=== PATIENT | male | born 2005 | race Two or more races ===

== ENCOUNTER 2025-03-13 18:49 | Emergency (ER) | payer MEDICAID, SELFPAY ==
[2025-03-13 19:42] VITALS: BP 133/80; PULSE 73; RESP 18; TEMP 36.9; O2SAT 98
--- NOTE | 2025-03-13 20:47 | PD.EDADULT ---
ED General RME/HPI General Chief complaint: General Adult/Misc Complain Stated complaint: INHALED SOMETHING FROM A TREE IN THE [place] Time Seen by Provider: 03/13/25 19:53 Arrival date/time: 03/13/25 18:49 20-year-old male presents to the ED with complaint of left nasal foreign body. He states he was picking oranges and when he was looking up he felt a piece of the [place] fall onto his left nares and he accidentally sniffed it into his left nostril. He feels a foreign body sensation in between his nose and his throat. He has tried blowing his nose as well as snorting without any foreign body noted. Related Data Previous Rx's ?Medication ?Instructions ?Recorded acetaminophen 325 mg capsule 650 mg (2 x 325 mg) PO Q6H PRN 12/23/19 fever #30 caps benzonatate 150 mg capsule 150 mg PO BID PRN cough #14 caps 12/23/19 ibuprofen 600 mg tablet 600 mg PO Q6H #30 tabs 12/23/19 Allergies Allergy/AdvReac Type Severity Reaction Status Date / Time No Known Allergies Allergy Verified 03/13/25 18:53 Review of Systems Review of Systems Systems Reviewed: All systems reviewed, normal except as documented Past Medical History Past Medical History CARDIAC: Negative Congestive Heart Failure RESPIRATORY: Negative Chronic Obstructive Pulmonary Disease (COPD) GENITOURINARY: Negative Renal Disease ENDOCRINE: Negative Diabetes Mellitus Type 1 or Diabetes Mellitus Type 2 Social History SMOKING STATUS: Never smoker SUBSTANCE USE: does not use ED Exam Narrative Physical exam: Alert and oriented 20-year-old male, no acute distress. Nares are pale and boggy without foreign body noted, pharynx without erythema or foreign body noted. Lungs are clear, regular rate and rhythm without murmurs. Vital signs blood pressure 133/80, pulse 73, respirations 18 and nonlabored, temp 98.5, O2 sat 98% on room air. Course Course Course Narrative: 20-year-old male presents to the ED with complaint of left nasal foreign body. He states he was picking oranges and when he was looking up he felt a piece of the [place] fall onto his left nares and he accidentally sniffed it into his left nostril. He feels a foreign body sensation in between his nose and his throat. He has tried blowing his nose as well as snorting without any foreign body noted. Alert and oriented 20-year-old male, no acute distress. Nares are pale and boggy without foreign body noted, pharynx without erythema or foreign body noted. Lungs are clear, regular rate and rhythm without murmurs. Vital signs blood pressure 133/80, pulse 73, respirations 18 and nonlabored, temp 98.5, O2 sat 98% on room air. Nares were irrigated with saline with return tiny organic foreign body noted. Quality Measures none Orders Category Date Time Status Miscellaneous Nursing Order NOW Care 03/13/25 20:16 Completed Vital Signs Vital signs: Vital Signs Temperature 98.5 F 03/13/25 19:42 Pulse Rate 73 03/13/25 19:42 Respiratory Rate 18 03/13/25 19:42 Blood Pressure 133/80 H 03/13/25 19:42 Pulse Oximetry (%) 98 03/13/25 19:42 Oxygen Delivery Method Room Air 03/13/25 19:42 Procedures -ED Procedure Comment Attempted nasal lavage with saline and a tiny organic foreign body noted. Discharge Plan Plan Patient Disposition: HOME (Self Care) Discharge Disposition comment: Stable and improved Prescriptions/Referrals Prescriptions/Med Rec: No Action benzonatate 150 mg capsule 150 mg PO BID PRN (Reason: cough) Qty: 14 0RF ibuprofen 600 mg tablet 600 mg PO Q6H Qty: 30 0RF acetaminophen 325 mg capsule 650 mg PO Q6H PRN (Reason: fever) Qty: 30 0RF Referrals: No Primary/Family,Physician [Primary Care Provider] - In 1 week Problem List Clinical Impression: Acute foreign body of nose Patient/Caregiver Discharge Instructions Education Materials: ED Foreign Body Soft Tissue Removed Additional Instructions: Follow-up with your primary care physician in 24 to 48 hours. Return to the ED for any new or worsening symptoms. Print Language: Bengali Stand Alone Forms: [facility] Award Info., Patient Portal Info Letter PA/ASPHALT TAR AND GRAVEL ROOFER Supervising Physician PA/JOHN Supervising Physician: Dr. Royal HEBERT Patient Acuity Low Acuity (complete MDM as needed) Narrative: 20-year-old male presents to the ED with complaint of left nasal foreign body. He states he was picking oranges and when he was looking up he felt a piece of the [place] fall onto his left nares and he accidentally sniffed it into his left nostril. He feels a foreign body sensation in between his nose and his throat. He has tried blowing his nose as well as snorting without any foreign body noted. Alert and oriented 20-year-old male, no acute distress. Nares are pale and boggy without foreign body noted, pharynx without erythema or foreign body noted. Lungs are clear, regular rate and rhythm without murmurs. Vital signs blood pressure 133/80, pulse 73, respirations 18 and nonlabored, temp 98.5, O2 sat 98% on room air. Nares were irrigated with saline with return tiny organic foreign body noted. Clinical Information Provided by: patient Medical Records reviewed None Meds/Rx considered, not ordered None Labs/Rad/Tests considered, not ordered None Chronic Illness/Social Conditions which may negatively complicate care or outcome(s)-explain: None or not applicable EKG EKG not done Labs Labs: none Imaging Imaging interpretation: none or see narrative above Medication Administration(s) none Diagnosis Differential Diagnosis ED Complaint MDM: Foreign body sensation, foreign body
== END 2025-03-13 20:53 | disposition home or self-care (01) ==
PROVIDERS: Emergency Provider Emergency Medicine
DX: T17.1XXA Foreign body in nostril, initial encounter (principal); W44.F9XA Other object of natural or organic material, entering into or through a natural orifice, initial encounter; Y93.89 Activity, other specified; Y92.74 Orchard as the place of occurrence of the external cause
CPT/HCPCS: 30300; 99283